=== PATIENT | male | born 1970 | race Caucasian/White ===

== ENCOUNTER 2020-07-12 08:25 | Day surgery (SDC) | payer OTHER, SELFPAY ==
--- NOTE | 2020-06-29 16:02 | HP_ITS ---
DATE OF SERVICE: 07/12/2020 DATE OF PROPOSED SURGERY: July 12, 2020. PREOPERATIVE DIAGNOSIS: Arthritic bunion of the right great toe joint. PLANNED PROCEDURE: Rice bunionectomy, right foot. PLANNED ANESTHESIA: Either MAC or general anesthesia. CHIEF COMPLAINT AND HISTORY OF PRESENT ILLNESS: Oswald is a 49-year-old male, who relates history of painful arthritic bunion deformity involving his right foot. He relates that this condition has been present for the past 1 year. His pain is aggravated by shoe gear and walking activity. Conservative treatment consisting of physical therapy as well as custom orthoses has proven ineffective and the patient is now requesting surgical treatment for his foot condition. PAST MEDICAL HISTORY: Remarkable for history of heart disease, hypertension, high cholesterol. CURRENT MEDICATIONS: Aspirin 81 mg, atorvastatin, lisinopril 5 mg. ALLERGIES: THE PATIENT HAS NO KNOWN ALLERGIES OR DRUG SENSITIVITIES. FAMILY HISTORY: Significant for stroke. SOCIAL HISTORY: The patient denies smoking, denies use of any recreational drugs. The patient does relate alcohol consumption and also relates he drinks 1 to 2 cups of coffee per day. PODIATRIC PHYSICAL EXAMINATION: VASCULAR EXAM: The patient displays +2/4 pulses. DP and PT arteries bilateral with normal cap refill time noted bilateral feet. NEUROLOGIC EXAM: Reveals intact sensation. The patient does have pain on palpation, particularly on the dorsal aspect of the right first metatarsophalangeal joint. DERMATOLOGIC EXAM: Reveals intact skin. ORTHOPEDIC EXAM: Reveals hypertrophic bone of the right first metatarsal head with painful limited range of motion of the right first metatarsophalangeal joint. The patient was seen most recently in my office on June 22, 2020. Preoperative informed consent was obtained from the patient that day for his planned right foot surgery. Preoperative medical clearance has been provided by the patient's primary care physician, Dr. Deborah Mullins. JEM Corea/ISAIAS / [id number]
--- NOTE | 2020-07-11 11:53 | P.CONAN_ITS ---
Documented by User: Nallely Perdomo 07/11/20 12:01 HPI - Anesthesia Eval Consult details Narrative: 49yo M for Rice Bunionectomy PCP cleared [facility] Past Medical History Medical History CAD (coronary artery disease) Dysplastic nevi Elevated cholesterol History of cerebrovascular disease History of ischemic cardiomyopathy HTN (hypertension) Hx of acute myocardial infarction of anterior wall Joint pain Osteoarthritis White matter abnormality on MRI of brain Surgical History Surgical History History of esophagogastroduodenoscopy (EGD) Hx of colonoscopy Hx of heart artery stent Social History Social History Smoking Status: Never smoker Use of substances other than those prescribed or required for medical reasons: No Advance Directives: No Advance Directives Information Provided: Yes Recently lost weight without trying: No Meds Allergies Allergy/AdvReac Type Severity Reaction Status Date / Time No Known Allergies Allergy Verified 07/12/20 08:55 Home Medications Medication Instructions Recorded Confirmed Last Taken Type aspirin [Aspir-81] 81 mg PO DAILY 07/05/20 07/05/20 Unknown History atorvastatin 1 tab PO DAILY 07/05/20 07/05/20 Unknown History lisinopril 1 tab PO DAILY 07/05/20 07/05/20 Unknown History nitroglycerin 1 tab SUBLINGUAL NEEDED PRN 07/05/20 07/05/20 Unknown History Exam Exam Date and Time: July 11, 2020 1153 Narrative Narrative: Stress 2020: Acheived 10.9 METS, no ischemic changes Nuclear scan showed fixed scarring versus hibernation of mid apical anterior septal and apex as well as a mild basal mid inferior fixed defect without motion abnormality, No perfusion defects, baseline EF 48% at rest and 53% with stress. Assessment and Plan Assessment Anesthesia Assessment: Chart Reviewed Documented by User: Nate Nix 07/12/20 09:17 PMFSH Past Medical History Medical History CAD (coronary artery disease) Dysplastic nevi Elevated cholesterol History of cerebrovascular disease History of ischemic cardiomyopathy HTN (hypertension) Hx of acute myocardial infarction of anterior wall Joint pain Osteoarthritis White matter abnormality on MRI of brain Surgical History Surgical History History of esophagogastroduodenoscopy (EGD) Hx of colonoscopy Hx of heart artery stent Social History Social History Smoking Status: Never smoker Use of substances other than those prescribed or required for medical reasons: No Advance Directives: No Advance Directives Information Provided: Yes Recently lost weight without trying: No Meds Allergies Allergy/AdvReac Type Severity Reaction Status Date / Time No Known Allergies Allergy Verified 07/12/20 08:55 Home Medications Medication Instructions Recorded Confirmed Last Taken Type aspirin [Aspir-81] 81 mg PO DAILY 07/05/20 07/05/20 Unknown History atorvastatin 1 tab PO DAILY 07/05/20 07/05/20 Unknown History lisinopril 1 tab PO DAILY 07/05/20 07/05/20 Unknown History nitroglycerin 1 tab SUBLINGUAL NEEDED PRN 07/05/20 07/05/20 Unknown History Exam Airway Mallampati Class: II TM Dist: >3cm Neck ROM: Full Loose/Missing/Broken Teeth: No Heart: [id number] Lungs: cta b/l Assessment and Plan Assessment Anesthesia Assessment: Anesthesia Plan Discussed, PAT Visit and Chart Reviewed Final Anesthetic Review NPO: Yes ASA Class: III Final Preanesthetic Review: No Changes in Pt Med Stat, Meds/Allgs Chart Reviewed, Consent Obtained/Reviewed and Anes Risks/Benef Reviewed Patient Risk: Intermediate Procedure Risk: Low Assessment/Block/Sedation in SS: Assess/Block/Sedation-SS Anesthetic Plan Anesthetic Plan: MAC: and Agree w/ Assess. and Plan Disposition: Standard PACU
[2020-07-12 08:47] VITALS: BP 113/76; PULSE 58; RESP 16; TEMP 36.5; O2SAT 97
[2020-07-12 08:48] VITALS: BMI 25.5
[2020-07-12 09:05] VITALS: BP 113/76; PULSE 58; RESP 16; TEMP 36.5; O2SAT 97
--- NOTE | 2020-07-12 10:12 | MHC.SHP ---
Pre-Procedural Eval Section B Chief Complaint: bunion Allergies: Allergies Allergy/AdvReac Type Severity Reaction Status Date / Time No Known Allergies Allergy Verified 07/12/20 08:55 Plan I have reviewed the history and physical and performed a pertinent physical examination on my patient. No changes have occurred unless specified.
[2020-07-12 11:06] VITALS: BP 105/65; PULSE 64; RESP 20; TEMP 36.2; O2SAT 99
--- NOTE | 2020-07-12 11:12 | PCN2_ITS ---
Brief Operative Note Date of procedure: 07/12/20 Pre-op diagnosis: hallux rigidus right foot Post-op diagnosis: same Procedure: maldonado bunionectomy right foot Anesthesia: MAC Surgeon: Steven Berumen Sports Editor: Radha Cameron Estimated blood loss (mL): 1.5 Condition: stable Disposition: same day
[2020-07-12 11:24] VITALS: BP 111/68; PULSE 76; RESP 18; O2SAT 98
[2020-07-12 11:33] VITALS: BP 111/72; PULSE 51; RESP 16; O2SAT 98
--- NOTE | 2020-07-12 17:00 | OP_ITS ---
SURGEON: Steven Berumen DPM PREOPERATIVE DIAGNOSIS: Arthritic bunion of the right first metatarsophalangeal joint. POSTOPERATIVE DIAGNOSIS: Arthritic bunion of the right first metatarsophalangeal joint. PROCEDURE PERFORMED: Modified Ivan bunionectomy of the right foot. ESTIMATED BLOOD LOSS: COMPLICATIONS: ANESTHESIA: Consisted of local administration of a total of 12 mL of an equal mix of 2% lidocaine with epinephrine 1:100,000 and 0.5% Marcaine plain. Intravenous sedation was provided by the anesthesia department. ASSISTANTS: SPECIMENS: INTRODUCTION: The patient was brought to the operating room, placed on the operating table in a supine position. After having been suitably anesthetized with local infiltrative anesthesia, the right lower extremity was then prepped and draped in the usual sterile manner. IVAN BUNIONECTOMY, RIGHT FOOT. Attention was directed to the dorsum of the right first metatarsophalangeal joint, where incision approximately 6 cm in length was effected, centered over the dorsum of the right first MTP joint. The incision was deepened in same plane and hemostasis was acquired as necessary. The skin margins were underscored and retracted. A dorsal linear capsule incision was then effected. The capsule and periosteum were underscored and retracted. The medial eminence was resected utilizing a sagittal saw from the first metatarsal head. There was found to be extensive hypertrophic bone with degenerative cartilage as well as some loose osteophytes on the dorsum of the first metatarsal head and also base of the proximal phalanx. The hypertrophic bone and degenerative cartilage were resected from the first metatarsal head in a modified mor fashion. Remaining bone was resected utilizing bone cutting forceps, bone rongeur, and then all surfaces were rasped smooth utilizing a power reciprocating rasp. The wound was irrigated with saline. The first intermetatarsal space was then exposed via blunt and sharp dissection. A lateral capsulotomy and adductor tenotomy were performed via sharp dissection. The capsule was then closed with 3-0 Vicryl, one half of a 3 x 3 cm AmnioFix was placed inside the capsule during closure. The second half being placed in subcutaneous tissue during closure utilizing 4-0 Maxon and Monocryl subcuticular closure. The skin margins were then also reinforced with a ZipLine wound closure system. CONCLUSION: At the inclusion of this procedure, the operative site was injected with 5 mL of Marcaine and 1 mL of dexamethasone phosphate. Surgical site was dressed with sterile Xeroform, Betadine-soaked gauze, Kerlix fluffs, and gauze. The right ankle tourniquet was deflated. Normal blood flow was reestablished to the right lower extremity. The patient was discharged to Recovery with vital signs stable via cart. FINAL DISPOSITION: The patient was discharged home with instructions for self-care and include the followin. To keep the dressings dry, clean, and intact. 2. To keep the right leg elevated with ice above the ankle. 3. Take all medications as prescribed. 4. To limit activity to minimum. 5. To always use surgical shoe and crutches, ambulating, partial weightbearing on the right foot. 6. The patient has prescriptions already at home. Motrin 800 mg 1 p.o. t.i.d. p.c., gabapentin 300 mg 1 p.o. daily at bedtime, and then the patient will be taking Tylenol as needed also. JEM Corea / [id number] SHERWIN
== END 2020-07-12 12:38 | disposition home or self-care (01) ==
PROVIDERS: PCP Internal Medicine; Visit Provider Podiatrist
PROC: (CPT 28292; principal; 2020-07-12 10:10)
DX: M20.11 Hallux valgus (acquired), right foot (principal); M21.611 Bunion of right foot; M19.071 Primary osteoarthritis, right ankle and foot; I25.10 Atherosclerotic heart disease of native coronary artery without angina pectoris; Z98.61 Coronary angioplasty status; I10 Essential (primary) hypertension; Z79.82 Long term (current) use of aspirin; Z79.899 Other long term (current) drug therapy
CPT/HCPCS: 28292; 88304; 88311; J0690; J1100; J2250; J3010; J3590

== ENCOUNTER 2023-09-09 11:27 | Outpatient (AMB) | payer OTHER, SELFPAY ==
--- NOTE | 2023-09-09 11:33 | MHC.OFFVIS ---
Vital Signs 09/09/23 11:36 Height 5 ft 7 in Weight 167 lb BMI 26.2 BP 114/78 Blood Pressure Location Lt brachial Position Sitting Pulse 68 Intake Visit Reasons: Colonoscopy screening Intake Note: Patient 2nd pre colonoscopy screening. Patient 1st Colonoscopy was at [facility] 10 years ago and was normal, and he is complaining on Acid reflex on and off. Shoe Trimmer Required: No Accompanied by: Self / Same As Patient Allergies No Known Allergies Allergy (Verified 09/09/23 11:33) Medication List - Last Reconciled 09/09/23 by Kaylah Ferrera PA-C aspirin 81 mg PO DAILY atorvastatin 1 tab PO DAILY lisinopril 1 tab PO DAILY nitroglycerin 1 tab sublingual NEEDED PRN HPI Comments Details: A 53 y/o male hx IN 2016-referred for screening colonoscopy Last colonoscopy 10 years ago- at -for rectal bleeding no findings Appetite good Normal bowels- Sees cardiology- - sees annually -no issues- keeps NTG on hand at all times he is only used it on 1 occasion Does have fatigue will schedule back to see cardiology No chest pain, shortness of breath, N/V/D- abdominal pain-fever or chills Reviewed PCP referral PENDING SALE TO [facility] Medical History White matter abnormality on MRI of brain Osteoarthritis Joint pain Dysplastic nevi History of ischemic cardiomyopathy History of cerebrovascular disease Hx of acute myocardial infarction of anterior wall CAD (coronary artery disease) Elevated cholesterol HTN (hypertension) Surgical History History of esophagogastroduodenoscopy (EGD) Hx of colonoscopy Hx of heart artery stent Social History Household Members: Family Household Members Other:: 3 kids Alcohol intake: never Patient Tobacco Use Status: Never used Tobacco Use of substances other than those prescribed or required for medical reasons: No Current occupational status: employed Current occupation: FT Physical Exam Vital Signs: Last Vital Signs Pulse 68 09/09/23 11:36 BP 114/78 09/09/23 11:36 BMI result Body Mass Index 26.2 Const General: cooperative, healthy appearing, comfortable and no acute distress Orientation/consciousness: patient oriented x3 Limitations: no limitations Eyes Sclerae: sclerae normal Resp Effort & Inspection: normal respiratory effort and able to speak in complete sentences Auscultation: clear to auscultation bilaterally, no rales, no rhonchi and no wheezes Cardio Rate: regular rate Rhythm: regular rhythm Heart sounds: S1 normal heart sound present and S2 normal heart sound present GI Palpation (GI): Soft to palpation and nontender Auscultation: normal bowel sounds Skin General skin exam: no rashes or lesions noted Neuro General: patient oriented x3 Extrem General: Yes full ROM and Yes no clubbing, cyanosis or edema Psych Appearance: grossly normal and well kempt Mental Status: mental status grossly normal Speech and movement: Normal speech and movement present Affect: normal affect Attitude: cooperative Thought process: Normal thought process present Thought content: Normal thought content present Insight: Good insight present (Psych) Judgement: Good judgement present (Psych) Results Reviewed Results Reviewed: PCP note Assessment & Plan Assessment & Plan (1) History of IN (myocardial infarction): Comment: reviewed pcp note- Code(s): I25.2 - Old myocardial infarction Category: Medical Plan: Needs cardiac input-no details or records (2) Encounter for screening colonoscopy: Comment: Discussed procedure, rare risks, need for escorted due to anesthesia and prep Code(s): Z12.11 - Encounter for screening for malignant neoplasm of colon Category: Medical Plan: Screening colonoscopy-if cardiology clearance MiraLax Gatorade prep Plan Pt to call cardiology- have a letter of clearance for anethesia- provide fax # for schedulers- once recieved will schedule colonoscopy- Disc w/ SS, and pt- Patient Instructions: Screening colonoscopy, cardiac clearance Provided information for patient to follow-up with Cardiology and send formal clearance MiraLax Gatorade prep, reviewed literature given No major barriers to understanding were identified Coding Level of Care Code New Pt Level 4 (09125) Diagnoses History of IN (myocardial infarction) I25.2 Encounter for screening colonoscopy Z12.11 Time Spent (min) 35
[2023-09-09 11:36] VITALS: BP 114/78; PULSE 68; BMI 26.2
== END 2023-09-09 12:30 | disposition home or self-care (01) ==
PROVIDERS: PCP Internal Medicine; Visit Provider Physician Assistant
DX: I25.2 Old myocardial infarction (principal); Z12.11 Encounter for screening for malignant neoplasm of colon
CPT/HCPCS: 99204

== ENCOUNTER → 2023-09-09 11:27 | Outpatient (BNVA) | payer OTHER, SELFPAY | PROVIDERS: PCP Internal Medicine; Visit Provider Physician Assistant ==

== ENCOUNTER 2024-02-02 07:59 | Day surgery (SDC) | payer OTHER, SELFPAY ==
[2024-01-29 15:00] VITALS: BMI 26.2
[2024-02-02 08:45] VITALS: BMI 25.7
[2024-02-02] MEDS: Lactated Ringers 1,000 ML 100 ML IVCONT (08:53)
[2024-02-02 09:12] VITALS: BP 118/78; PULSE 59; RESP 18; TEMP 36.7; O2SAT 96
--- NOTE | 2024-02-02 09:25 | P.CONAN_ITS ---
Documented by User: Nallely Perdomo NP 02/01/24 12:08 HPI - Anesthesia Eval Consult details Narrative: 53yo M for Upper Endoscopy and Colonoscopy Follows [facility] cardiology for CAD with MA 2017 s/p stenting. Ischemic CMP (EF 48%) [facility] Active Problems Active Problems: All Active Problems Encounter for screening colonoscopy (Acute) History of MA (myocardial infarction) (Acute) Past Medical History Medical History White matter abnormality on MRI of brain Osteoarthritis Joint pain Dysplastic nevi History of ischemic cardiomyopathy History of cerebrovascular disease Hx of acute myocardial infarction of anterior wall CAD (coronary artery disease) Elevated cholesterol HTN (hypertension) Surgical History Surgical History History of bunionectomy History of esophagogastroduodenoscopy (EGD) Hx of colonoscopy Hx of heart artery stent Social History Social History Household Members: Family Household Members Other:: 3 kids Are you a primary home care chaplain to a significant other at home: No Do you presently have visiting nurse or other home services: No Alcohol intake: never Patient Tobacco Use Status: Never used Tobacco Have you been hit, kicked, punched, or otherwise hurt by someone within the past year? If so, by whom?: No Are you DNR?: No Advance Directives: No Advance Directives Information Provided: Yes Recently lost weight without trying: No Nutrition Risks: No Nutritional Risk Current occupational status: employed Current occupation: FT Meds Allergies Allergy/AdvReac Type Severity Reaction Status Date / Time No Known Allergies Allergy Verified 02/02/24 09:13 Home Medications ?Medication ?Instructions ?Recorded ?Confirmed ?Last Taken ?Type aspirin 81 mg tablet,delayed 81 mg PO DAILY 07/05/20 01/29/24 01/31/24 History release atorvastatin 80 mg tablet 1 tab PO DAILY 07/05/20 01/29/24 Unknown History lisinopril 5 mg tablet 1 tab PO DAILY 07/05/20 01/29/24 Unknown History nitroglycerin 0.4 mg sublingual 1 tab sublingual NEEDED PRN 07/05/20 01/29/24 Unknown History tablet Chest Pain Exam Height,Weight and Vital Signs: Height 5 ft 7 in Weight 75.75 kg Narrative Narrative: Stress ECHO 05/20[address] Results ECG No significant ST changes Arrhythmias No arrhythmias. Symptoms Non-limiting chest pain Stress Interpretation Normal exercise tolerance test. Normal exercise physiology. No EKG evidence of ischemia. Echo Findings Rest The left ventricle size is normal. Left ventricular systolic function appears preserved to mildly reduced. 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 Peak There is no significant change in the territories involved by the dyskinetic LV apical aneurysm, although appearance is more prominent due to appropriate wall motion augmentation in other territories. Overall LV systolic function is improved with stress. Summary Technically difficult study. Echocardiographic evidence of distal LAD infarct without evidence of ischemia or hibernating myocardium. EKG portion reported separately. Preliminary results are no EKG evidence of ischemia at high exercise effort and excellent level of stress. Comparison No prior study available for comparison. Assessment and Plan Assessment Anesthesia Assessment: Chart Reviewed Documented by User: Nicole Hall DO 02/02/24 09:28 [facility] Past Medical History Medical History White matter abnormality on MRI of brain Osteoarthritis Joint pain Dysplastic nevi History of ischemic cardiomyopathy History of cerebrovascular disease Hx of acute myocardial infarction of anterior wall CAD (coronary artery disease) Elevated cholesterol HTN (hypertension) Family History Family history of problems with anesthesia: No Surgical History Surgical History History of bunionectomy History of esophagogastroduodenoscopy (EGD) Hx of colonoscopy Hx of heart artery stent History of Problems with Anesthesia: No Social History Social History Household Members: Family Household Members Other:: 3 kids Are you a primary home care chaplain to a significant other at home: No Do you presently have visiting nurse or other home services: No Alcohol intake: never Patient Tobacco Use Status: Never used Tobacco Have you been hit, kicked, punched, or otherwise hurt by someone within the past year? If so, by whom?: No Are you DNR?: No Advance Directives: No Advance Directives Information Provided: Yes Recently lost weight without trying: No Nutrition Risks: No Nutritional Risk Current occupational status: employed Current occupation: FT Meds Allergies Allergy/AdvReac Type Severity Reaction Status Date / Time No Known Allergies Allergy Verified 02/02/24 09:13 Home Medications ?Medication ?Instructions ?Recorded ?Confirmed ?Last Taken ?Type aspirin 81 mg tablet,delayed 81 mg PO DAILY 07/05/20 01/29/24 01/31/24 History release atorvastatin 80 mg tablet 1 tab PO DAILY 07/05/20 01/29/24 Unknown History lisinopril 5 mg tablet 1 tab PO DAILY 07/05/20 01/29/24 Unknown History nitroglycerin 0.4 mg sublingual 1 tab sublingual NEEDED PRN 07/05/20 01/29/24 Unknown History tablet Chest Pain Exam Exam Date and Time: 02/02/24 09 Height,Weight and Vital Signs: Height 5 ft 7 in Weight 75.75 kg Vital Signs Temperature 98.1 F 02/02/24 09:12 Pulse Rate 59 02/02/24 09:12 Respiratory Rate 18 02/02/24 09:12 Blood Pressure 118/78 02/02/24 09:12 Pulse Oximetry 96 02/02/24 09:12 Oxygen Delivery Method Room Air 02/02/24 09:12 Temperature 98.1 F 02/02/24 09:12 Pulse Rate 59 02/02/24 09:12 Respiratory Rate 18 02/02/24 09:12 Blood Pressure 118/78 02/02/24 09:12 Pulse Oximetry 96 02/02/24 09:12 Oxygen Delivery Method Room Air 02/02/24 09:12 Airway Mallampati Class: II TM Dist: >3cm Neck ROM: Full Loose/Missing/Broken Teeth: No (patient denies any loose or broken teeth) Heart: S1S2 Lungs: CTAB Assessment and Plan Assessment Anesthesia Assessment: Anesthesia Plan Discussed and Chart Reviewed Final Anesthetic Review Family History of Problems with Anesthesia: No History of Problems with Anesthesia: No NPO: Yes ASA Class: III Final Preanesthetic Review: No Changes in Pt Med Stat, Meds/Allgs Chart Reviewed, Consent Obtained/Reviewed and Anes Risks/Benef Reviewed Patient Risk: Intermediate Procedure Risk: Low Anesthetic Plan Anesthetic Plan: MAC: and Agree w/ Assess. and Plan Disposition: Standard PACU
--- NOTE | 2024-02-02 09:47 | MHC.SHP ---
Pre-Procedural Eval Section A - 24 Hr Update-Section A only Date of Service: 02/02/24 Section B - Complete if H&P > 30 days Chief Complaint: Encounter for screening for malignant neoplasm of Details of Present Illness: father CRC aged 75 Relevant Family History (Specify if Yes): Yes Relevant Social History: None Present Medications: see Short Stay Collaborative assessment Medical History: Significant History (IN) History of Previous Operations: Relevant previous surgery/procedure and date(s) (colonoscopy ) Allergies: Allergies Allergy/AdvReac Type Severity Reaction Status Date / Time No Known Allergies Allergy Verified 02/02/24 09:13 Review of Systems Sugical H&P ROS: Negative: Constitution, Cardiovascular, Respiratory, Neurological, Psychiatric, Hem-Onc, Allergic/Immunologic, Gastrointestinal, Genitourinary, Musculoskeletal, Integumentary, Endocrine and Eyes/Ears/Nose/Throat Exam Surgical H&P Exam: Normal: HEENT, Normal: Heart, Normal: Lungs, Normal: Extremities, Normal: Abdomen, Normal: Skin and Normal: Neurological Plan Diagnosis/Plan: Unchanged I have reviewed the history and physical and performed a pertinent physical examination on my patient. No changes have occurred unless specified. Time Spent With Patient Time: Total time managing care of this patient today ____ minutes.
--- NOTE | 2024-02-02 10:16 | HO.OPN-COLON ---
Colonoscopy Operative Note Operative Note Date of Service: 02/02/24 Narrative: Operative Information Procedure Description: Colonoscopy Indication: screening Anesthesia: MAC COLONOSCOPY Instrument: Olympus variable stiffness pediatric scope 190L Colonoscopy Monitoring: Vital signs and clinical assessment, continuous EKG monitoring, Pulse oximetry, Carbon Dioxide monitoring and blood pressure monitoring were done throughout the procedure. Colon withdrawal time was 8 minutes. Procedure: The patient was placed in the left lateral decubitis position and pre-procedure medications were administered. After a digital rectal examination of the ano-rectum, the video colonoscope was inserted into the rectum and advanced through the colon to the cecum/TI. The colonoscope was slowly withdrawn in a retrograde panoramic fashion and the colon mucosa was carefully examined including a retroflexed view of the rectum. Findings and interventions are described below. Procedure Difficulty: easy Findings: Terminal Ileum-normal Cecum:normal Ascending Colon: flat polyp 8-10 mm, lifted with eleview and then removed with cold snare Transverse Colon -normal Descending Colon:normal Sigmoid Colon: normal Rectum: Retroflexion with small internal hemorrhoids seen, grade I Anorectum - normal Intervention: cold snare, eleview injection, EMR resection Colon preparation: Montgomery Bowel Preparation Scale Right colon; 3 Transverse colon: 2 Left colon; 2 (0 = Unprepared colon segment with mucosa not seen due to solid stool that cannot be cleared. 1 = Portion of mucosa of the colon segment seen, but other areas of the colon segment not well seen due to staining, residual stool and/or opaque liquid. 2 = Minor amount of residual staining, small fragments of stool and/or opaque liquid, but mucosa of colon segment seen well. 3 = Entire mucosa of colon segment seen well with no residual staining, small fragments of stool or opaque liquid) Impression and Post Procedure Diagnosis: colon polyp internal hemorrhoids Plan: High fiber diet leaflet Avoid straining at stool, epsom salts and sitz bath, anusol supps or cream Repeat Colonoscopy in 5 years or earlier if clinically indicated Above findings were reviewed with the patient and relevant handouts were provided if indicated.
[2024-02-02 10:20] VITALS: BP 95/61; PULSE 66; RESP 16; TEMP 36.1; O2SAT 97
[2024-02-02 10:35] VITALS: BP 100/58; PULSE 58; RESP 16; O2SAT 98
[2024-02-02 10:50] VITALS: BP 113/73; PULSE 50; RESP 16; O2SAT 97
[2024-02-02 11:05] VITALS: BP 110/71; PULSE 55; RESP 18; TEMP 36.3; O2SAT 98
== END 2024-02-02 11:47 | disposition home or self-care (01) ==
PROVIDERS: PCP Physician Assistant; Visit Provider Internal Medicine Gastroenterology
PROC: 0DJD8ZZ Inspection of Lower Intestinal Tract, Via Natural or Artificial Opening Endoscopic (ICD-10-PCS; CPT 45378; principal; 2024-02-02 09:50)
DX: Z12.11 Encounter for screening for malignant neoplasm of colon (principal); Z80.0 Family history of malignant neoplasm of digestive organs; D12.2 Benign neoplasm of ascending colon; K64.0 First degree hemorrhoids; I25.10 Atherosclerotic heart disease of native coronary artery without angina pectoris; Z95.5 Presence of coronary angioplasty implant and graft; I25.2 Old myocardial infarction; I10 Essential (primary) hypertension; E78.00 Pure hypercholesterolemia, unspecified; R53.83 Other fatigue; D23.9 Other benign neoplasm of skin, unspecified; Z79.82 Long term (current) use of aspirin; Z79.899 Other long term (current) drug therapy
CPT/HCPCS: 45385; 45381; 88305; J2003; J2704

== ENCOUNTER → 2024-02-02 07:59 | Outpatient (BNV) | payer OTHER, SELFPAY | PROVIDERS: PCP Physician Assistant; Visit Provider Internal Medicine Gastroenterology | DX: Z12.11 Encounter for screening for malignant neoplasm of colon (principal); K63.5 Polyp of colon; K64.0 First degree hemorrhoids | CPT/HCPCS: 45381; 45385 ==